=== PATIENT | female | born 1940 | race Hispanic/Latino ===

== ENCOUNTER 2017-11-23 22:28 | Observation (INO) | payer MEDICARE, OTHER ==
[2017-11-23 22:41] VITALS: BMI 31.6
--- NOTE | 2017-11-23 23:01 | ED PDOC ---
Arrival/HPI - General Chief Complaint: Palpitations Time Seen by Provider: 11/23/17 22:36 Historian: Patient - History of Present Illness Narrative History of Present Illness (Text): 11/23/17 23:02 77 year old female, whose past medical history includes AL and A-fib, presents to the emergency department for evaluation status post episode of palpitations. Patient states she was at home when she began feeling palpitations. Patient states she became very sweaty and felt as if she was going to pass out. Patient denies any associated chest pain. Patient also informs the episode has resolved now. Patient denies any fevers, chills, chest pain, abdominal pain, nausea, vomiting, diarrhea, back pain, neck pain, urinary/bowel changes, or any other complaint. Time/Duration: Prior to Arrival Context: Home Past Medical History - Provider Review Nursing Documentation Reviewed: Yes - Cardiac Hx Cardiac Arrhythmia: Yes (SVT , Afib) Hx Hypertension: Yes Other/Comment: Chronic sick sinus syndrome - Endocrine/Metabolic Hx Diabetes Mellitus Type 2: Yes - Musculoskeletal/Rheumatological Hx Arthritis: Yes (Rheumatoid) - Gastrointestinal Hx Gastroesophageal Reflux: Yes - Psychiatric Hx Depression: No Hx Emotional Abuse: No Hx Physical Abuse: No Hx Substance Use: No - Suicidal Assessment Feels Threatened In Home Enviroment: No Family/Social History - Physician Review Nursing Documentation Reviewed: Yes Family/Social History: No Known Family HX Smoking Status: Never Smoked Hx Alcohol Use: No Hx Substance Use: No Hx Substance Use Treatment: No Allergies/Home Meds Allergies/Adverse Reactions: Allergies Penicillins Allergy (Mild, Verified 11/23/17 22:42) RASH Home Medications: Home Meds Medication Instructions Recorded Confirmed Hydroxychloroquine Sulfate 200 mg PO BID 06/05/13 11/24/17 [Plaquenil] Potassium Chloride [K-Dur 20] 20 meq PO BID 06/05/13 11/24/17 RX: Naproxen 500 mg PO BID 06/05/13 11/24/17 Clopidogrel [Plavix] 75 mg PO DAILY 11/23/17 11/23/17 Metoprolol Succinate [Toprol Xl] 50 mg PO DAILY 11/23/17 11/23/17 Oxybutynin Chloride [Ditropan Xl] 5 mg PO BID 11/23/17 11/24/17 RX: Amiodarone HCl 200 mg PO DAILY 11/23/17 11/23/17 RX: Aspirin [Aspirin Chewable] 81 mg PO DAILY 11/23/17 11/23/17 RX: Atorvastatin Calcium 10 mg PO DAILY 11/23/17 11/23/17 Calcium Carbonate [Calcium] 1,000 mg PO DAILY 11/24/17 11/24/17 Cholecalciferol (Vitamin D3) 2,000 unit PO DAILY 11/24/17 11/24/17 [Vitamin D3] Levocetirizine Dihydrochloride 5 mg PO DAILY 11/24/17 11/24/17 [24Hr Allergy Relief] Multivitamin [Chewable-Heber] 1 each PO DAILY 11/24/17 11/24/17 RX: [place]-3 Fatty Acids/Fish Oil 1,000 mg PO DAILY 11/24/17 11/24/17 [Fish Oil 1,000 mg Capsule] RX: Omeprazole 20 mg PO DAILY 11/24/17 11/24/17 Review of Systems - Physician Review All systems were reviewed & negative as marked: Yes - Review of Systems Constitutional: absent: Fevers, Night Sweats Cardiovascular: Palpitations Gastrointestinal: absent: Abdominal Pain, Diarrhea, Nausea, Vomiting Genitourinary Female: absent: Urine Output Changes Musculoskeletal: absent: Back Pain, Neck Pain Endocrine: Diaphoresis Physical Exam Vital Signs Reviewed: Yes Vital Signs Pulse Resp BP Pulse Ox 11/23/17 22:41 80 18 132/70 98 Temperature: Afebrile Blood Pressure: Normal Pulse: Regular Respiratory Rate: Normal Appearance: Positive for: Well-Appearing, Non-Toxic, Comfortable Pain Distress: None Mental Status: Positive for: Alert and Oriented X 3 - Systems Exam Head: Present: Atraumatic, Normocephalic Pupils: Present: PERRL Extroacular Muscles: Present: EOMI Conjunctiva: Present: Normal Mouth: Present: Moist Mucous Membranes Neck: Present: Normal Range of Motion Respiratory/Chest: Present: Clear to Auscultation, Good Air Exchange. No: Respiratory Distress, Accessory Muscle Use Cardiovascular: Present: Regular Rate and Rhythm, Normal S1, S2. No: Murmurs Abdomen: No: Tenderness, Distention, Peritoneal Signs Back: Present: Normal Inspection Upper Extremity: Present: Normal Inspection. No: Cyanosis, Edema Lower Extremity: Present: Normal Inspection. No: Edema Neurological: Present: GCS=15, CN II-XII Intact, Speech Normal Skin: Present: Warm, Dry, Normal Color. No: Rashes Psychiatric: Present: Alert, Oriented x 3, Normal Insight, Normal Concentration Medical Decision Making ED Course and Treatment: 11/23/17 23:06 Impression: 77 year old female presents for evaluation status post palpitations. Plan: -- EKG -- Chest X-ray -- Labs -- Oxygen therapy -- Reassess and disposition Prior Visits: Notes and results from previous visits were reviewed. case d/w dr beckett will obs for cardiac arrhythmia pacemaker interrogated no v tach or v fib Progress Notes: 11/24/17 06:00 - EKG Interpretation EKG Interpretation (Text): 11/24/17 03:56 sinus with atrial pacemaker rate80 nssts changes - Scribe Statement The provider has reviewed the documentation as recorded by the Scribe Tyson Deleon Provider Scribe Attestation: All medical record entries made by the Scribe were at my direction and personally dictated by me. I have reviewed the chart and agree that the record accurately reflects my personal performance of the history, physical exam, medical decision making, and the department course for this patient. I have also personally directed, reviewed, and agree with the discharge instructions and disposition. Disposition/Present on Arrival - Present on Arrival Any Indicators Present on Arrival: No History of DVT/PE: No History of Uncontrolled Diabetes: No Urinary Catheter: No History of Decub. Ulcer: No History Surgical Site Infection Following: None - Disposition Have Diagnosis and Disposition been Completed?: Yes Diagnosis: Palpitations Disposition: HOSPITALIZED Disposition Time: 01:00 Patient Problems: Current Active Problems Problem Status Onset Palpitations Acute Condition: GOOD
[2017-11-23 23:32] LABS: BASO # 0.06 K/mm3 (0.0-2.0); BASO % 0.7 % (0.0-3.0); EOS # 0.3 (0.0-0.7); EOS % 3.8 % (1.5-5.0); GRAN # 5.17 (1.4-6.5); GRAN % 61.5 % (50.0-68.0); HEMOGLOBIN 10.2 g/dL (12.0-16.0); LYMPH # 2.4 (1.2-3.4); LYMPH % 28.3 % (22.0-35.0); MEAN CELL VOLUME 92.6 fl (80.0-105.0); MEAN CORPUSCULAR HEMOGLOBIN 30.3 pg (25.0-35.0); MEAN CORPUSCULAR HGB CONC 32.7 g/dl (31.0-37.0); MEAN PLATELET VOLUME 11.6 fl (7.0-11.0); MONO # 0.5 (0.1-0.6); MONO % 5.7 % (1.0-6.0); RBC 3.37 10^6/uL (3.5-6.1); RED CELL DISTRIBUTION WIDTH 13.6 % (11.5-14.5); WHITE BLOOD COUNT 8.4 10^3/ul (4.5-11.0)
[2017-11-23 23:39] LABS: INR 1.3; PARTIAL THROMBOPLASTIN TIME 27.6 Seconds (25.1-36.5); PROTHROMBIN TIME 14.9 SECONDS (9.4-12.5)
[2017-11-23 23:50] LABS: TROPONIN I < 0.01 ng/mL
[2017-11-24 00:30] LABS: ALBUMIN 2.9 g/dL (3.0-4.8); ALT/SGPT 41 U/L (7-56); AST/SGOT 41 U/L (14-36); BLOOD UREA NITROGEN 23 mg/dL (7-21); CALCIUM 5.9 mg/dL (8.4-10.5); GFR NON-AFRICAN AMERICAN 31
[2017-11-24 03:13] VITALS: O2SAT 98
[2017-11-24 06:12] VITALS: TEMP 97.8
[2017-11-24 07:17] LABS: HEMOGLOBIN 10.1 g/dL (12.0-16.0); MEAN CORPUSCULAR HEMOGLOBIN 29.9 pg (25.0-35.0); MEAN CORPUSCULAR HGB CONC 32.5 g/dl (31.0-37.0); MEAN PLATELET VOLUME 11.6 fl (7.0-11.0); RBC 3.38 10^6/uL (3.5-6.1); RED CELL DISTRIBUTION WIDTH 13.6 % (11.5-14.5); WHITE BLOOD COUNT 8.5 10^3/ul (4.5-11.0)
[2017-11-24 07:25] LABS: TROPONIN I < 0.01 ng/mL
[2017-11-24 07:30] LABS: ALBUMIN 2.8 g/dL (3.0-4.8); ALT/SGPT 37 U/L (7-56); AST/SGOT 35 U/L (14-36); BLOOD UREA NITROGEN 22 mg/dL (7-21); CALCIUM 6.1 mg/dL (8.4-10.5); GFR NON-AFRICAN AMERICAN 34
[2017-11-24] MEDS ORDERED: Multivitamin With Minerals Tab PO SCH (08:00)
--- NOTE | 2017-11-24 08:48 | RAD ---
Date of service: 11/23/2017 HISTORY: palpitations COMPARISON: 07/25/2014 FINDINGS: LUNGS: No active pulmonary disease. PLEURA: No significant pleural effusion identified, no pneumothorax apparent. CARDIOVASCULAR: No radiographic findings to suggest acute or significant cardiovascular disease. Position/ configuration of pacemaker device: Satisfactory. OSSEOUS STRUCTURES: No significant abnormalities. VISUALIZED UPPER ABDOMEN: Normal. OTHER FINDINGS: None. IMPRESSION: No active disease.
--- NOTE | 2017-11-24 09:10 | CARD ---
APPROVED REPORT Date of service: 11/23/2017 EKG Measurement Heart [id number] <Conclusion> Electronic atrial pacemaker Right bundle branch block Abnormal ECG
[2017-11-24 09:21] VITALS: BP 118/52; PULSE 78
[2017-11-24] MEDS ORDERED: OMEGA 1000 MG PO SCH (10:00)
[2017-11-24] MEDS ORDERED: Cholecalciferol 1,000 INTLU TAB PO SCH (10:00)
[2017-11-24] MEDS ORDERED: LEVOCETIRIZINE DIHYDROCHLORIDE 5 MG PO SCH (10:00)
[2017-11-24] MEDS ORDERED: Naproxen 550 mg Tab PO SCH (10:00)
[2017-11-24] MEDS ORDERED: Metoprolol Succinate 50 mg XL Tab PO SCH (10:00)
[2017-11-24] MEDS ORDERED: Potassium Chloride 20 mEq ER Tab PO SCH (10:00)
[2017-11-24 10:40] LABS: HDL CHOLESTEROL 33 mg/dL (29-60)
[2017-11-24 10:52] LABS: LDL CHOLESTEROL < 30 mg/dL (0-129)
[2017-11-24 11:58] VITALS: RESP 18
--- NOTE | 2017-11-24 22:40 | HP ---
ADMISSION NOTE DATE OF ADMISSION: 11/23/2017 HISTORY OF PRESENT ILLNESS: Ms. Joshi is a 77-year-old female with history of myocardial infarction and atrial fibrillation presented to the ED with episode of palpitations. She was given a prescription for Xarelto by Dr. Toth, has not started yet. She sees clin application specialist, . She also had defibrillator. Episode resolved on arrival to the ER. No nausea. No vomiting. Defibrillator was interrogated in the ER. No bleeding from any site. PAST MEDICAL HISTORY: Atrial fibrillation, rapid heart rate, hypertension, chronic sick sinus syndrome, diabetes mellitus type 2, rheumatoid arthritis, GE reflux. FAMILY HISTORY: Noncontributory. PERSONAL HISTORY: Never smoked. No history of alcohol abuse. ALLERGIES: PENICILLIN CAUSES RASH. HOME MEDICATIONS: Plaquenil 200 mg p.o. b.i.d., naproxen 500 mg p.o. b.i.d., Plavix 75 mg p.o. daily, Toprol XL 50 mg p.o. daily, amiodarone 200 mg p.o. daily, aspirin 81 mg daily, calcium, Lipitor 10 mg daily, multivitamin daily. PHYSICAL EXAMINATION: GENERAL: Comfortable in bed, in no acute distress. VITAL SIGNS: Temperature 98, blood pressure 130/70, respiratory rate 18 per minute, pulse is 80 per minute. HEENT: Pallor positive. NECK: No lymphadenopathy. CHEST: Air entry present and equal, bilateral. No added sounds. CARDIOVASCULAR: S1, S2 normal. No murmur. No gallop. ABDOMEN: Soft, nontender. No hepatosplenomegaly. EXTREMITIES: No edema. CLINICAL TECH: Alert and oriented x3. No focal sensorimotor deficits. SKIN: No petechiae. No rash. SPINE: Nontender. EKG: Sinus with atrial pacing at 80 beats per minute. Chest x-ray: No infiltrate. ASSESSMENT: 1. Atrial fibrillation, rapid heart rate. 2. Anticoagulation management. 3. Anemia. 4. Hypertension. 5. Diabetes mellitus type 2. 6. Rheumatoid arthritis. PLAN: She will be admitted to the hospital tele monitoring. Cardiology consultation of Dr. Schroeder requested. We will monitor serial troponin, first set of troponin negative. Lipitor 10 mg daily, amiodarone 200 mg daily, aspirin 81 mg daily, calcium gluconate daily, metoprolol 50 mg daily, naproxen 500 mg p.o. b.i.d. Cardiac enzymes ordered for the morning. Юлия Cardona MD
--- NOTE | 2017-11-24 22:49 | DS ---
DATE OF DISCHARGE: 11/24/2017 DISCHARGE DIAGNOSES: 1. Atrial fibrillation, rapid heart rate. 2. Anticoagulation management. 3. Anemia. 4. Rheumatoid arthritis. 5. Diabetes mellitus type 2. HOSPITAL COURSE: The patient was admitted with rapid heart rate. She has a pacemaker, the beats were paced. The pacemaker was interrogated in the ER. Cardiology consultation, Dr. Schroeder requested. She was started on Xarelto 20 mg daily. She was previously given a prescription for anticoagulation, but she did not start yet. Heart rate has been stable during hospitalization. Cardiac enzymes were negative. PHYSICAL EXAMINATION: On discharge: GENERAL: Comfortable in bed, in no acute distress. VITAL SIGNS: Temperature 98.7, heart rate 78 per minute, blood pressure 118/52, oxygen saturation 98% on room air. HEENT: Pallor positive. NECK: No lymphadenopathy. CHEST: Air entry present and equal, bilateral. No added sounds. CARDIOVASCULAR: S1, S2 normal. No murmur. No gallop. ABDOMEN: Soft, nontender. No hepatosplenomegaly. EXTREMITIES: No edema. EVS ATTENDANT: Alert and oriented x3. No focal sensorimotor deficits. CONDITION ON DISCHARGE: Stable. DISPOSITION: Discharge home. DISCHARGE MEDICATIONS: Continue home meds. Continue Xarelto 20 mg daily. FOLLOWUP: Follow up with Cardiology in 1 week. Follow up with Dr. Melgar in 1 week. DIET: Heart-healthy diet. All prescriptions given to the patient. Time spent in preparing discharge and coordinating care 55 minutes. Юлия Cardona MD
--- NOTE | 2017-11-25 03:52 | CON ---
DATE: 11/24/2017 REASON FOR CONSULTATION: History of atrial fibrillation, paroxysmal, status post permanent pacemaker. BRIEF CLINICAL HISTORY: A 77-year-old female with past medical history significant for paroxysmal atrial fibrillation, was on Eliquis, cannot afford it. Now, recently changed to Xarelto and amiodarone. Being followed by , status post pacemaker. Yesterday, came in because of palpitation. Denies any chest pain. Denies any shortness of breath. Denies any palpitation now. PAST MEDICAL HISTORY: Significant for hypertension, hyperlipidemia, history of atrial fibrillation, status post permanent pacemaker. PAST SURGICAL HISTORY: Significant for pacemaker 2 years ago, history of cholecystectomy 10-15 years ago. SOCIAL HISTORY: Denies any smoking. Denies any history of alcohol abuse. CURRENT MEDICATIONS: The patient is taking Plaquenil, potassium, multivitamin, Naprosyn, amiodarone, metoprolol succinate 50 mg daily, atorvastatin, Plavix and aspirin. The patient was before on Eliquis, but expensive, cannot afford it, so she was put on Plavix and the patient had prescription at home filled with Xarelto. PHYSICAL EXAMINATION: VITAL SIGNS: Height of the patient is 5 feet 8 inches, weight of the patient 208 pounds. Body mass index 31.6 kg/m2. The rest of the vitals, temperature afebrile, heart rate 78, blood pressure 118/52. HEENT: PERRLA, intact. NECK: Supple. No carotid bruits or thyromegaly. CHEST: Clear to auscultation. HEART: S1 and S2 regular. ABDOMEN: Soft. EXTREMITIES: Clubbing and cyanosis negative. LABORATORY DATA: Blood workup: WBC 8.5, hemoglobin 10.3, hematocrit 31.1, platelet count 192. Chemistry shows sodium 144, potassium 3.9, chloride 116, carbon dioxide 19, BUN 12, creatinine 1.5. IMPRESSION: A 77-year-old female with past medical history significant for paroxysmal atrial fibrillation, at home on Xarelto. Before, the patient was on Eliquis, cannot afford it, so was put on Plavix. Now, recently started on Xarelto, has the prescription filled. Came in with palpitation. RECOMMENDATION: We will resume back Xarelto. We will resume back an amiodarone. Hypocalcemia. We will give one dose of calcium gluconate. The patient has some renal insufficiency as well as hypoalbuminemia on admission. No evidence of acute ME. We will get the TSH, lipid profile and we will get an echo. Discontinue telemetry. Rate is well controlled. We will discontinue Plavix. We will discontinue aspirin. No history of coronary artery disease. We will put back on amiodarone. The patient was given aspirin and Plavix in view of Xarelto because the patient needs to filled up. The patient was on Eliquis as mentioned and cannot afford it, so Xarelto prescription given with the patient had filled at home. We will also add lipid profile, TSH, hemoglobin now and we will discontinue telemetry. Thank you, Dr. Melgar, for providing us the opportunity in taking care of the patient, Susie Santos. Reji Schroeder MD
--- NOTE | 2017-11-25 16:00 | CARD ---
APPROVED REPORT Date of service: 11/24/2017 EXAM: Two-dimensional and M-mode echocardiogram with Doppler and color Doppler. INDICATION PAF,PAPITATION,S/P PPM 2D DIMENSIONS Left Atrium (2D)4.7 (1.6-4.0cm)IVSd1.3 (0.7-1.1cm) LVDd4.4 (3.9-5.9cm)PWd1.3 (0.7-1.1cm) LVDs3.2 (2.5-4.0cm)FS (%) 28.9 % LVEF (%)55.8 (>50%) M-Mode DIMENSIONS Aortic Root3.40 (2.2-3.7cm)Aortic Cusp Exc.1.70 (1.5-2.0cm) Aortic Valve AoV Peak Iddhivpf388.0cm/Delfina Peak GR.14mmHg Mitral Valve MV E Hgqkinhm984.0cm/sMV A Jdtmxaqj98.8cm/sE/A ratio1.2 TDI Lateral E' Peak V9.75cm/sMedial E' Peak V6.53cm/sE/Lateral E'11.3 E/Medial E'16.8 Pulmonary Valve PV Peak Axyzggmn54.5cm/sPV Peak Grad.2mmHg Tricuspid Valve TR Peak [id number]/sRAP [id number] Peak Gr.15mmHg [id number] LEFT VENTRICLE The left ventricle is normal size. There is mild concentric left ventricular hypertrophy. The left ventricular function is normal.EF-55-60% There is normal LV segmental wall motion. The left ventricular diastolic function is normal. No left ventricle thrombus noted on this study. There is no ventricular septal defect visualized. There is no left ventricular aneurysm. There is no mass noted in the left ventricle. RIGHT VENTRICLE The right ventricle is normal size. There is normal right ventricular wall thickness. The right ventricular systolic function is normal. There is a pacemaker lead in the right ventricle. ATRIA The left atrium is mildly dilated. The right atrium size is normal. There is a catheter/pacemaker lead seen in the right atrium. The interatrial septum is intact with no evidence for an atrial septal defect. AORTIC VALVE The aortic valve is thickened but opens well. There is trace aortic regurgitation. Aortic Sclerosis Vs Mild There is no aortic valvular vegetation. MITRAL VALVE The mitral valve is thickened but opens well. Mitral regurgitation is mild to moderate. The mitral regurgitant jet is eccentrically directed. There is no mitral valve stenosis. There is no evidence of mitral valve prolapse. TRICUSPID VALVE The tricuspid valve leaflets are thickened , but open well. There is trace to mild tricuspid regurgitation.RVSP-25 mmof Hg. There is no tricuspid valve stenosis. There is no tricuspid valve prolapse or vegetation. PULMONIC VALVE The pulmonary valve is normal in structure. There is trace pulmonic valvular regurgitation. There is no pulmonic valvular stenosis. GREAT VESSELS The aortic root is normal in size. The ascending aorta is normal in size. The pulmonary artery is normal. The IVC is normal in size and collapses >50% with inspiration. PERICARDIAL EFFUSION There is no pleural effusion. Trivial Pericardial effusion <Conclusion> The left ventricle is normal size. There is mild concentric left ventricular hypertrophy. The left ventricular function is normal.EF-55-60% There is trace aortic regurgitation. There is no aortic valvular vegetation. Aortic Sclerosis Vs Mild Mitral regurgitation is mild to moderate. The mitral regurgitant jet is eccentrically directed. There is trace to mild tricuspid regurgitation.RVSP-25 mmof Hg. There is trace pulmonic valvular regurgitation. The IVC is normal in size and collapses >50% with inspiration. Trivial Pericardial effusion PPM lead noted in RA/RV.
== END 2017-11-24 18:10 | disposition home or self-care (01) ==
LOC: ED 22:28 → ERH 11-24 00:38 → 2RSO 11-24 01:52
PROVIDERS: ADMIT Internal Medicine Medical Oncology; ATTEND Internal Medicine Medical Oncology
DX: I48.0 Paroxysmal atrial fibrillation (principal); D64.9 Anemia, unspecified; M06.9 Rheumatoid arthritis, unspecified; E11.9 Type 2 diabetes mellitus without complications; E78.5 Hyperlipidemia, unspecified; I10 Essential (primary) hypertension; I25.2 Old myocardial infarction; K21.9 Gastro-esophageal reflux disease without esophagitis; Z79.01 Long term (current) use of anticoagulants; Z79.02 Long term (current) use of antithrombotics/antiplatelets; Z79.82 Long term (current) use of aspirin; Z79.899 Other long term (current) drug therapy; Z90.49 Acquired absence of other specified parts of digestive tract; Z95.0 Presence of cardiac pacemaker; E83.51 Hypocalcemia; N28.9 Disorder of kidney and ureter, unspecified